=== PATIENT | male | born 1965 | race Caucasian/White ===

== ENCOUNTER 2025-06-08 11:38 | Emergency (ER) | payer BC ==
[~2025-06-08] VITALS: Ht 180.3 cm; Wt 68.0 kg
[~2025-06-08 11:38] MED LIST: AMOX500; CLIN300 PO; Cleocin HCl300 MG PO; HYDACE5 PO; IBUP600 PO; IBUP800 PO; METPRE4DP PO; OXYACE5T PO; PROACE100 PO; RXHYDACE PO; RXOXYACE PO; RXPROACE PO; Ultram50 MG PO
[2025-06-08 11:43] VITALS: BP 155/100
[2025-06-08] MEDS ORDERED: CEPH500 PO (14:27)
== END 2025-06-08 14:50 | disposition home or self-care (01) ==
LOC: ER 11:38
DX: S68.117A Complete traumatic metacarpophalangeal amputation of left little finger, initial encounter (principal); Z79.2 Long term (current) use of antibiotics; F17.200 Nicotine dependence, unspecified, uncomplicated; W23.0XXA Caught, crushed, jammed, or pinched between moving objects, initial encounter
CPT/HCPCS: 73140; 90702; 90715; A9270